=== PATIENT | male | born 1950 | race Caucasian/White ===

== ENCOUNTER 2023-12-03 22:11 | Emergency (ER) | payer MEDICARE ==
[~2023-12-03] VITALS: Ht 172.7 cm; Wt 95.3 kg
[2023-12-03 22:21] VITALS: BP_SYST 165; PULSE 110; RESP 20; TEMP 98.1; O2SAT 95
[2023-12-03 22:31] VITALS: BP_SYST 165; PULSE 110; RESP 20; TEMP 98.1; O2SAT 95
== END 2023-12-03 22:31 | disposition home or self-care (01) ==
LOC: SED 22:11
DX: F10.129 Alcohol abuse with intoxication, unspecified (principal); E11.9 Type 2 diabetes mellitus without complications; I10 Essential (primary) hypertension; R00.0 Tachycardia, unspecified; Y90.9 Presence of alcohol in blood, level not specified
CPT/HCPCS: 99283